=== PATIENT | male | born 1975 | race Caucasian/White ===

== ENCOUNTER 2019-05-18 07:13 | Day surgery (SDC) | payer OTHER, MEDICAID ==
[~2019-05-18] VITALS: Ht 182.9 cm; Wt 89.1 kg
[~2019-05-18 07:13] MED LIST: CALC625T31 PO; ESCI20TA PO; HYDR236S MM; LACTAB PO; MULT1TAB66 PO; OXCA150T27 PO; RINGERS SOLUTION,LACTATED 1,000 ML IV ONE; RISP.5 PO; RISP1 PO; [UNRECOGNIZED DRUG - CODE] DT
[2019-05-18] MEDS ORDERED: IOHEXOL 240 MG/ML 20 ML VIAL ONE (07:23)
[2019-05-18] MEDS ORDERED: AMPICILLIN SODIUM 1 GM/VIAL ONE (07:47)
[2019-05-18] MEDS ORDERED: PHENYLEPHRINE HCL 1% 15 ML NASAL SPRAY NASAL ONE (08:03)
[2019-05-18] MEDS ORDERED: LIDOCAINE 2% 30 ML JELLY ONE (08:03)
[2019-05-18] MEDS ORDERED: KETAMINE HCL 50 MG/ML 10 ML VIAL ONE (11:54)
[2019-05-18] MEDS ORDERED: SUGAMMADEX SODIUM 200 MG/2 ML VIAL IVP ONE (11:54)
[2019-05-18] MEDS ORDERED: ACETAMINOPHEN 1000 MG/ISO-OSM 100 ML IV ONE (11:55)
[2019-05-18] MEDS ORDERED: MIDAZOLAM HCL 2 MG/2 ML VIAL IVP ONE (12:00)
[2019-05-18] MEDS ORDERED: LIDOCAINE/PF 2% 5 ML VIAL INJ ONE (12:00)
[2019-05-18] MEDS ORDERED: PROPOFOL 1% 20 ML VIAL IVP ONE (12:00)
[2019-05-18] MEDS ORDERED: GLYCOPYRROLATE 0.2 MG/ML VIAL IM ONE (12:00)
[2019-05-18] MEDS ORDERED: ROCURONIUM BROMIDE 10 MG/ML 5 ML VIAL IVP ONE (12:00)
[2019-05-18] MEDS ORDERED: KETOROLAC TROMETHAMINE 60 MG/2 ML VIAL IM ONE (12:00)
[2019-05-18] MEDS ORDERED: DEXAMETHASONE SOD PHOS 4 MG/ML VIAL IVP ONE (12:00)
[2019-05-18] MEDS ORDERED: ONDANSETRON HCL 4 MG/2 ML VIAL IVP ONE (12:00)
[2019-05-18] MEDS ORDERED: FentaNYL CITRATE-PF 100 MCG/2 ML VIAL IVP ONE (12:00)
[2019-05-18] MEDS ORDERED: FentaNYL CITRATE-PF 100 MCG/2 ML VIAL IVP PRN (13:00)
[2019-05-18] MEDS ORDERED: HYDROmorphone 2 MG/ML SYRINGE IVP PRN (13:00)
[2019-05-18] MEDS ORDERED: OXYGEN THERAPY IH SCH (13:00)
[2019-05-18] MEDS ORDERED: MEPERIDINE-PF 25 MG/ML VIAL IVP PRN (13:00)
== END 2019-05-18 14:35 | disposition home or self-care (01) ==
LOC: SURGERY 07:13
PROVIDERS: ATTEND Dentist General Practice
DX: K05.30 Chronic periodontitis, unspecified (principal); K03.6 Deposits [accretions] on teeth; F84.0 Autistic disorder; F89 Unspecified disorder of psychological development; I34.0 Nonrheumatic mitral (valve) insufficiency; F41.9 Anxiety disorder, unspecified; Z91.011 Allergy to milk products; Z79.899 Other long term (current) drug therapy
CPT/HCPCS: 41899; 71045; J0131; J0290; J1100; J1885; J2250; J2405; J2704; J3010; J3490 ×4; J7120; Q9966

== ENCOUNTER 2021-05-08 06:23 | Day surgery (SDC) | payer OTHER, MEDICAID ==
[~2021-05-08] VITALS: Ht 177.8 cm; Wt 77.3 kg
[~2021-05-08 06:23] MED LIST changes: -ESCI20TA PO; +ESCI20TA87 PO; -MULT1TAB66 PO; +MULT1TAB67 PO; -RISP.5 PO; +RISP0.5T39 PO; -RISP1 PO; +RISP1TAB48 PO
[2021-05-08] MEDS ORDERED: FentaNYL CITRATE PF 100 MCG/2 ML VIAL IVP ONE (06:24)
[2021-05-08] MEDS ORDERED: ONDANSETRON HCL 4 MG/2 ML VIAL IVP ONE (06:24)
[2021-05-08] MEDS ORDERED: MIDAZOLAM HCL 2 MG/2 ML VIAL IVP ONE (06:24)
[2021-05-08] MEDS ORDERED: LIDOCAINE/PF 2% 5 ML VIAL IM ONE (06:24)
[2021-05-08] MEDS ORDERED: PROPOFOL 1% 20 ML VIAL IVP ONE (06:24)
[2021-05-08 07:43] LABS: COVID AG,FIA SOURCE NASOPHARYNGEAL
[2021-05-08 07:43] LABS: BASOPHILS % (AUTO) 0.9 % (0.0-2.0); EOSINOPHILS % (AUTO) 7.9 % (1.0-6.0); HEMOGLOBIN 15.2 g/dL (13.5-17.5); LYMPHOCYTES # (AUTO) 1.4 K/uL (1.0-4.8); LYMPHOCYTES % (AUTO) 27.2 % (22.0-44.0); MEAN CORPUSCULAR HEMOGLOBIN 30.4 pg (26.0-34.0); MEAN CORPUSCULAR HGB CONC 34.4 G/dL (31.0-37.0); MEAN CORPUSCULAR VOLUME 88 fL (80-100); MONOCYTES # (AUTO) 0.6 K/uL (0.1-1.0); NEUTROPHILS # (AUTO) 2.8 K/uL (1.8-7.7); PLATELET COUNT (AUTO) 254 K/uL (150-450); RED BLOOD CELL COUNT(AUTO) 4.99 MIL/uL (4.50-5.90)
[2021-05-08 07:53] LABS: ANION GAP 9 mmol/L (8-16); CALCIUM, TOTAL 9.1 mg/dL (8.8-10.5); CARBON DIOXIDE 25 mmol/L (22-29); CHLORIDE 107 mmol/L (98-107); CREATININE 1.09 mg/dL (0.60-1.30); GLOMERULAR FILTR. RATE CALC > 60 mL/min (>60); GLUCOSE,RANDOM 108 mg/dL (70-110); POTASSIUM 3.9 mmol/L (3.5-5.1); SODIUM SERUM 141 mmol/L (136-145); UREA NITROGEN, BLOOD 18 mg/dL (7-18)
[2021-05-08 07:57] LABS: PROTHROMBIN TIME 10.9 SEC (9.4-11.6)
[2021-05-08 08:00] LABS: ALANINE AMINOTRANSFERASE 64 U/L (12-78); ALBUMIN 3.9 g/dL (3.4-5.0); ALKALINE PHOSPHATASE 78 U/L (46-116); ASPARTATE AMINOTRANSFERASE 28 U/L (15-37); BILIRUBIN,TOTAL 0.7 mg/dL (0.1-1.0); TOTAL PROTEIN, SERUM 7.3 g/dL (6.4-8.2)
[2021-05-08] MEDS ORDERED: SODIUM CHLORIDE 0.9% 100 ML ONE (09:14)
[2021-05-08] MEDS ORDERED: AMPICILLIN SODIUM 1 GM/VIAL ONE (09:14)
== END 2021-05-08 14:05 | disposition home or self-care (01) ==
LOC: SURGERY 06:23
PROVIDERS: ATTEND Dentist General Practice
DX: K02.9 Dental caries, unspecified (principal); K05.30 Chronic periodontitis, unspecified; F84.0 Autistic disorder; F41.9 Anxiety disorder, unspecified; F42.9 Obsessive-compulsive disorder, unspecified; Z79.899 Other long term (current) drug therapy; Z98.890 Other specified postprocedural states; Z79.01 Long term (current) use of anticoagulants; Z91.011 Allergy to milk products
CPT/HCPCS: 36415; 41899; 71045; 80053; 85025; 85610; 85730; 87426; 93005; C9803; J0290; J2250; J2405; J2704; J3010; J3490; J7050; J7120